=== PATIENT | female | born 1970 ===

== ENCOUNTER 2024-06-03 08:45 | Inpatient (IN) | payer OTHER ==
[~2024-06-03] VITALS: Ht 274.3 cm; Wt 5.0 kg
[2024-06-03] MEDS ORDERED: ZOCOR40 MG (09:08)
[2024-06-03] MEDS ORDERED: SYNTHROID50 MCG PO (09:08)
[2024-06-03] MEDS ORDERED: NEURONTIN800 MG PO (09:09)
[2024-06-03] MEDS ORDERED: TAMOXIFEN CITRA20 MG (09:09)
[2024-06-03] MEDS ORDERED: XANAX2 MG PO (09:10)
[2024-06-03] MEDS ORDERED: RELAFEN DS1000 MG (09:10)
[2024-06-03] MEDS ORDERED: CLONAZEPAM2 MG PO (09:11)
[2024-06-03] MEDS ORDERED: VITAMIN D310 MCG/1 M (09:12)
[2024-06-03 09:19] VITALS: BP 112/75
[2024-06-13] MEDS ORDERED: LIDOCAINE HCL 1%/EPINEPHRINE 20ML VIAL IJ ONE (15:30)
[2024-06-13] MEDS ORDERED: CEFAZOLIN SODIUM 1,000 MG VIAL IV ONE (15:30)
[2024-06-13] MEDS ORDERED: BUPIVACAINE HCL 30 ML VIAL IJ ONE (15:30)
[2024-06-13] MEDS ORDERED: POVIDONE-IODINE 118 ML BOTT TOP ONE (15:45)
[2024-06-13] MEDS ORDERED: RINGERS SOLUTION,LACTATED 1,000 ML IV SCH (17:00)
[2024-06-13] MEDS ORDERED: SIMETHICONE 125 MG CAPSULE PO SCH (17:00)
[2024-06-13] MEDS ORDERED: METOCLOPRAMIDE HCL 5 MG/ML VIAL IV SCH (17:00)
[2024-06-13] MEDS ORDERED: MORPHINE SULFATE 4 MG/ML CARTRIDGE IV PRN (17:00)
[2024-06-13] MEDS ORDERED: KETOROLAC TROMETHAMINE 30 MG VIAL IV ONE ×2 (17:00→18:35)
[2024-06-13] MEDS ORDERED: KETOROLAC TROMETHAMINE 30 MG VIAL IV SCH (17:00)
[2024-06-13] MEDS ORDERED: CEFAZOLIN SODIUM 1,000 MG VIAL IV SCH (17:00)
[2024-06-13] MEDS ORDERED: MORPHINE SULFATE 4 MG/ML VIAL IV ONE (17:35)
[2024-06-13] MEDS ORDERED: SURGIFLO APPLICATOR 1 EACH APPL TOP ONE (17:45)
[2024-06-13] MEDS ORDERED: HEMOSTATIC MATRIX 1 KIT KIT TOP ONE (17:45)
[2024-06-13] MEDS ORDERED: ACETAMINOPHEN 500 MG GEL..CAP PO SCH (18:00)
[2024-06-13] MEDS ORDERED: GABAPENTIN 300 MG CAPSULE PO SCH (21:00)
[2024-06-13] MEDS ORDERED: DOCUSATE SODIUM 100MG CAP PO SCH (21:00)
[2024-06-13] MEDS ORDERED: FAMOTIDINE/PF 20 MG/2 ML VIAL IV PUSH SCH (21:00)
[2024-06-13 21:30] LABS: HEMOGLOBIN 12.3 g/dL (12.0-15.00); MEAN CELL VOLUME 85.5 fL (80.00-100.00); MEAN CORPUSCULAR HEMOGLOBIN 28.4 pg (27.00-32.0); MEAN CORPUSCULAR HGB CONC 33.2 g/dl (32.0-36.0); PLATELET COUNT 250 K/uL (150-450); RED BLOOD COUNT 4.33 M/uL (4.00-6.00); RED CELL DISTRIBUTION WIDTH 14.8 % (11.5-14.5)
[2024-06-13 21:51] LABS: ALBUMIN 3.1 gm/dL (3.4-5.0); CALCIUM 8.7 mg/dL (8.5-10.1); CREATININE SERUM 0.75 mg/dL (0.55-1.02); GFR 81.15; PHOSPHOROUS 3.1 mg/dL (2.5-4.9); POTASSIUM 4.38 mEq/L (3.5-5.1)
[2024-06-14] VITALS: BP 107/53; O2SAT 95
[2024-06-14 05:07] LABS: HEMATOCRIT 35.9 % (36.0-45.00); MEAN CELL VOLUME 85.7 fL (80.00-100.00); MEAN CORPUSCULAR HEMOGLOBIN 28.1 pg (27.00-32.0); MEAN CORPUSCULAR HGB CONC 32.8 g/dl (32.0-36.0); PLATELET COUNT 230 K/uL (150-450); RED BLOOD COUNT 4.19 M/uL (4.00-6.00); RED CELL DISTRIBUTION WIDTH 14.6 % (11.5-14.5)
[2024-06-14 05:10] LABS: HEMOGLOBIN 11.8 g/dL (12.0-15.00)
[2024-06-14 05:29] LABS: ALBUMIN 2.8 gm/dL (3.4-5.0); CALCIUM 8.6 mg/dL (8.5-10.1); CREATININE SERUM 0.78 mg/dL (0.55-1.02); GFR 77.55; PHOSPHOROUS 3.8 mg/dL (2.5-4.9); POTASSIUM 4.46 mEq/L (3.5-5.1)
[2024-06-14 08:00] VITALS: BP 118/58; O2SAT 99
[2024-06-14] MEDS ORDERED: ENOXAPARIN SODIUM 40 MG/0.4 ML SYRINGE SUBCUTANEO SCH (17:00)
== END 2024-06-15 17:26 | disposition home or self-care (01) | DRG 743 ==
LOC: O/R 06-13 06:46 → OB/GYN 06-13 08:45 → O/R 06-13 19:12 → SURH 06-13 20:50
PROVIDERS: ADMIT Obstetrics & Gynecology; ATTEND Obstetrics & Gynecology
PROC: 0UT74ZZ Resection of Bilateral Fallopian Tubes, Percutaneous Endoscopic Approach (ICD-10-PCS; 2024-06-13)
PROC: 0UT24ZZ Resection of Bilateral Ovaries, Percutaneous Endoscopic Approach (ICD-10-PCS; 2024-06-13)
PROC: 0USG4ZZ Reposition Vagina, Percutaneous Endoscopic Approach (ICD-10-PCS; 2024-06-13)
PROC: 0UT94ZZ Resection of Uterus, Percutaneous Endoscopic Approach (ICD-10-PCS; principal; 2024-06-13 12:30)
DX: D25.1 Intramural leiomyoma of uterus (principal); N72 Inflammatory disease of cervix uteri; N84.0 Polyp of corpus uteri; Z20.822 Contact with and (suspected) exposure to COVID-19